=== PATIENT | male | born 1995 | race Caucasian/White ===

== ENCOUNTER 2016-08-22 13:16 | Emergency (ER) | payer OTHER ==
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
--- NOTE | 2016-08-24 11:02 | REP ---
CT of the brain without IV contrast: There are no comparisons. There is no subdural or epidural hematoma. There is no hemorrhage, edema, mass effect or midline shift. Ventricles are normal size and midline. There is opacification of a few ethmoid sinus air cells. Impression: Negative CT scan of the brain except for findings compatible with ethmoid sinusitis. Signed by Ronald Auguste MD 08/22/2016 03:58 P
--- NOTE | 2016-08-24 11:03 | REP ---
PA and lateral chest: There are no comparisons. The lung willoughby are clear. The cardiac size is normal The latisha, mediastinum, and bony thorax are unremarkable. Impression: Negative PA and lateral chest. Signed by Ronald Auguste MD 08/22/2016 04:10 P
--- NOTE | 2016-08-24 11:03 | REP ---
CT of the cervical spine: Axial images are acquired in the reformatted sagittal and coronal projections. The skull base, C1-C2 are unremarkable. Vertebral body heights, interspacing alignment are normal. Prevertebral soft tissues are normal. Facets are normally aligned. There are no posterior element fractures. Impression: There is no fracture or listhesis. Signed by Ronald Auguste MD 08/22/2016 03:59 P
--- NOTE | 2016-08-24 11:03 | REP ---
CT of the lumbar spine: Axial images are acquired helical scanning in the reformatted sagittal coronal projections. Vertebral body heights, alignment and interspacing are normal except for degenerative disc disease at L1-2. There is no spondylolysis or spondylolisthesis. There are no posterior element fractures. Impression: No fracture or listhesis. L1-2 degenerative disc disease. Signed by Ronald Auguste MD 08/22/2016 04:03 P
--- NOTE | 2016-08-24 11:03 | REP ---
CT of the thoracic spine: Axial images are acquired in the reformatted sagittal coronal projections. Vertebral body heights, interspacing alignment are normal. No compression deformities. No listhesis. No posterior element fractures are identified. Impression: There is no fracture or listhesis. Signed by Ronald Auguste MD 08/22/2016 04:01 P
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
== END 2016-08-22 16:18 | disposition home or self-care (01) ==
LOC: M ED 13:16
DX: S16.1XXA Strain of muscle, fascia and tendon at neck level, initial encounter (principal); V43.52XA Car driver injured in collision with other type car in traffic accident, initial encounter; Y92.410 Unspecified street and highway as the place of occurrence of the external cause; Y93.89 Activity, other specified; Y99.8 Other external cause status; M51.36 Other intervertebral disc degeneration, lumbar region; J45.909 Unspecified asthma, uncomplicated; F17.200 Nicotine dependence, unspecified, uncomplicated